=== PATIENT | female | born 1990 | race American Indian/Alaskan Native ===

== ENCOUNTER 2018-04-14 19:16 | Outpatient (CLI) | payer MEDICAID ==
[2018-04-14 19:32] VITALS: BP 116/71
--- NOTE | 2018-04-14 21:54 | Ultrasound Report ---
FINAL REPORT PROCEDURE: US OB LIMITED TECHNIQUE: Real-time limited sonographic examination was performed for evaluation of position, heartbeat, fluid volume for each fetus with image documentation (1 or more fetuses). CPT 37907 HISTORY: Decreased movement. COMPARISON: No prior studies are available for comparison. FINDINGS: Given clinical age 38 weeks. FETUS IUP: Single living intrauterine . Position: Cephalic. Placental position: Fundal grade 2, without previa . Amniotic fluid volume: 11.1 cm. Heart rate and rhythm: 146 BPM, Regular . IMPRESSION: Limited obstetric ultrasound. Cephalic position. Fundal grade 2 placenta without previa. Normal amniotic fluid volume 11.1 centimeters. heart rate 146 beats per minute.
--- NOTE | 2018-04-14 21:56 | Ultrasound Report ---
FINAL REPORT PROCEDURE: US OB BPP WO NON-STRESS TECHNIQUE: Sonographic evaluation for breathing, movement, tone, and amniotic fluid volume was performed. HISTORY: Decreased movement. COMPARISON: Limited obstetric ultrasound dated same day and time. FINDINGS: Amniotic fluid volume: Normal-score 2. At least one vertical pocket > 2 cm or more in vertical axis. One measured vertical pocket 4.57 cm. breathing: Normal-score 2. movement: Normal-score 2. tone: Normal. Score: 8 of 8. Given clinical age 38 weeks. heart rate: 146 beats per minute. IMPRESSION: Normal biophysical profile.
--- NOTE | 2018-04-15 12:23 | Event Note ---
Date: 04/14/18 presented to L&D triage at 38 weeks, 1 day gestation complaining of decreased movement for less than one day. Patient denies contractions, leaking of fluid, or vaginal bleeding. Patient denies falls or abdominal trauma or pain. NST reactive. BPP 05/16. Discharged pt. home. Pt. to perform daily movement counts at home and follow up with [facility] this week.
== END 2018-04-14 22:08 | disposition home or self-care (01) ==
LOC: TRG 19:16
PROVIDERS: ATTEND Obstetrics & Gynecology
DX: O47.03 False labor before 37 completed weeks of gestation, third trimester (principal); Z3A.38 38 weeks gestation of pregnancy
CPT/HCPCS: 59025; 76815; 76819